=== PATIENT | female | born 1935 | race Caucasian/White ===

== ENCOUNTER → 2017-01-05 | Outpatient (CLI) | payer MEDICARE, BC ==
[~2017-01-05] MED LIST: 1-ME1LIQ PO; ALLO100T PO; AMLO10TA2 PO; ATOR40TA16 PO; AUGM500T7 PO; CALC0.25 PO; ENOX30P SQ; ENOX40P SQ; FURO1TAB62 PO; FURO20TA PO; LACT PO; LEVO50TA4 PO; LIPI10TA PO; METO25 PO; METO25TA6 PO; MISC-163; PARO25CR PO; PAXI25TA5 PO; PERC5TAB12 PO; PERI8.6T PO; VITA20002 PO; WALKER ROLLING; XARE10TA PO; ZOFR8TAB PO
[2017-01-05 15:00] LABS: APTT (PATIENT) 25.9 SEC (24.3-30.1); INTERNATIONAL NORMALIZED RATIO 0.9 RATIO
[2017-01-05 15:40] LABS: AUTOMATED NEUTROPHIL # 7.7 TH/MM3 (1.8-7.7); BASOPHIL # 0.1 TH/MM3 (0-0.2); BASOPHIL % 1.1 % (0.0-2.0); EOSINOPHIL # 0.4 TH/MM3 (0-0.4); EOSINOPHIL % 3.3 % (0.0-4.0); HEMATOCRIT 40.7 % (35.0-46.0); HEMO FLAGS DIFF FINAL; LYMPH % 18.2 % (9.0-44.0); LYMPHOCYTE # 2.1 TH/MM3 (1.0-4.8); MEAN CELL VOLUME 98.2 FL (80.0-100.0); MEAN CORPUSCULAR HEMOGLOBIN 31.3 PG (27.0-34.0); MEAN CORPUSCULAR HGB CONC 31.9 % (32.0-36.0); MONO % 11.4 % (0.0-8.0); PLATELET COUNT 280 TH/MM3 (150-450); RED BLOOD COUNT 4.15 MIL/MM3 (4.00-5.30); RED CELL DISTRIBUTION WIDTH 15.3 % (11.6-17.2); WHITE BLOOD COUNT 11.7 TH/MM3 (4.0-11.0)
== END ==
LOC: PLAB 13:58
PROVIDERS: ATTEND Orthopaedic Surgery
DX: S72.002D Fracture of unspecified part of neck of left femur, subsequent encounter for closed fracture with routine healing (principal)
CPT/HCPCS: 36415; 85025; 85610; 85730

== ENCOUNTER 2017-01-12 09:44 | Day surgery (SDC) | payer MEDICARE, BC ==
[~2017-01-12] VITALS: Ht 170.2 cm; Wt 77.3 kg
[~2017-01-12 09:44] MED LIST changes: -AMLO10TA2 PO; -ATOR40TA16 PO; -ENOX40P SQ; -FURO1TAB62 PO; -METO25TA6 PO; -PAXI25TA5 PO; -XARE10TA PO; -ZOFR8TAB PO
[2017-01-12] MEDS ORDERED: SODIUM CHLORIDE 0.9% 1000 ML IV SCH (10:00)
[2017-01-12] MEDS ORDERED: METO25TA6 PO (10:02)
[2017-01-12] MEDS ORDERED: FURO1TAB62 PO (10:03)
[2017-01-12] MEDS ORDERED: LEVO50TA4 PO (10:04)
[2017-01-12] MEDS ORDERED: PAXI25TA5 PO (10:06)
[2017-01-12] MEDS ORDERED: AMLO10TA2 PO (10:07)
[2017-01-12] MEDS ORDERED: ATOR40TA16 PO (10:07)
[2017-01-12] MEDS ORDERED: ALLO100T PO (10:08)
[2017-01-12 10:09] VITALS: BP 131/47; PULSE 51; RESP 18; TEMP 97.6; O2SAT 93
[2017-01-12] MEDS ORDERED: CALC0.25 PO (10:24)
[2017-01-12] MEDS ORDERED: LIDOCAINE 1%/EPINEPHrine 1:100,000 SOLN 20 ML VIAL ONE (13:23)
[2017-01-12] MEDS ORDERED: MIDAZOLAM HCL 5 MG/5 ML VIAL ONE (13:47)
[2017-01-12] MEDS ORDERED: fentaNYL CITRATE 250 MCG/5 ML AMP ONE (13:48)
[2017-01-12 14:40] VITALS: BP 131/52; PULSE 55; RESP 18; TEMP 97.7; O2SAT 96
[2017-01-12 14:55] VITALS: BP 115/37; PULSE 55; RESP 18; O2SAT 96
[2017-01-12 15:24] VITALS: BP 144/60; PULSE 54; RESP 18; O2SAT 93
--- NOTE | 2017-01-12 15:33 | RADRPT ---
EXAM DATE/TIME: 01/12/2017 13:59 [facility] COMPARISON: No previous studies available for comparison. INDICATIONS : Fluid collection left hip SEDATION TIME: 30 minutes MEDICATION(S): 1.) 2 mg midazolam (Versed) IV 2.) 100 mcg fentanyl (Sublimaze) IV DEVICE(S): 1.) 16 gauge Marquez blunt needle FLUID: Total volume of 120 cc of red fluid was removed. Fluid was discarded. MEDICAL HISTORY : Hypertension. Renal cell carcinoma. SURGICAL HISTORY : Lt nephrectomy, colon resection, lt hip repair ENCOUNTER: Initial ACUITY: 1 day PAIN SCORE: 0/10 LOCATION: Left hip PROCEDURE: 1.) Conscious sedation with continuous EKG and oximetry monitoring. 2.) EKG and oximetry remained stable throughout the procedure. PROCEDURE : CT guided aspiration of the left hip. The risks, benefits and alternatives to the procedure were explained and verbal and written consent w as obtained. Using automated exposure control and adjustment of the mA and/or kV according to patien t size, radiation dose was kept as low as reasonably achievable to obtain optimal diagnostic quality images. The site was prepped in sterile fashion. Full sterile technique was used, including cap, ma sk, sterile gloves and gown and a large sterile sheet. Hand hygiene and 2% chlorhexidine and/or beta dine/alcohol prep was utilized per protocol for cutaneous antisepsis. The skin and subcutaneous tiss ues were infiltrated with local anesthetic solution. 120 cc of bloody joint type fluid was removed CONCLUSION: Uncomplicated left hip aspiration as above. Fred Arguelles MD on January 12, 2017 at 15:30 Board Certified Radiologist. This report was verified electronically.
[2017-01-12 15:55] VITALS: BP 124/47; PULSE 55; RESP 18; O2SAT 97
== END 2017-01-12 15:40 | disposition home or self-care (01) ==
LOC: HRAD 09:44 → HRIP 09:48 → HRAD 15:40
PROVIDERS: ATTEND Orthopaedic Surgery
DX: S72.002D Fracture of unspecified part of neck of left femur, subsequent encounter for closed fracture with routine healing (principal); I10 Essential (primary) hypertension; Z85.528 Personal history of other malignant neoplasm of kidney
CPT/HCPCS: 20610; 77012; 99151; 99152; J2250; J3010; J7030; 99153

== ENCOUNTER 2017-01-15 12:02 | Inpatient (IN) | payer MEDICARE, BC ==
[~2017-01-15] VITALS: Ht 170.2 cm; Wt 62.3 kg
[~2017-01-15 12:02] MED LIST changes: -1-ME1LIQ PO; +AMLO10TA2 PO; +ATOR40TA16 PO; -AUGM500T7 PO; -ENOX30P SQ; +FURO1TAB62 PO; -FURO20TA PO; -LACT PO; -LIPI10TA PO; -METO25 PO; +METO25TA6 PO; -PARO25CR PO; +PAXI25TA5 PO; -PERC5TAB12 PO; -PERI8.6T PO; -VITA20002 PO
[2017-01-15] MEDS ORDERED: GENTAMICIN SULFATE 80 MG/2 ML VIAL ONE ×2 (13:18)
[2017-01-15] MEDS ORDERED: ceFAZolin 2 GM PREMIX 50 ML IV SCH (14:15)
[2017-01-15] MEDS ORDERED: INSULIN HUMAN REGULAR 1,000 UNITS/10 ML VIAL SQ PRN (14:15)
[2017-01-15] MEDS ORDERED: VANCOMYCIN 1000 MG/NS 250 ML (for <70 kg) IV SCH ×2 (14:15)
[2017-01-15] MEDS ORDERED: CHLORHEXIDINE GLUCONATE 2 % 1 PACK (2 CLOTHS) TOPICAL PRN (14:15)
[2017-01-15] MEDS ORDERED: LACTATED RINGER'S 1000 ML IV PRN (14:15)
[2017-01-15] MEDS ORDERED: METOPROLOL TARTRATE 25 MG TAB PO PRN (14:15)
[2017-01-15] MEDS ORDERED: SODIUM CHLORID 0.9% 500 ML IV PRN (14:15)
[2017-01-15] MEDS ORDERED: POVIDONE IODINE 5% (ANTISEPSIS KIT) 4 APPLICATIONS EACH NARE PRN (14:15)
[2017-01-15] MEDS: SODIUM CHLOR 0.45% 1000 ML INJ 1,000 ML IV SCH (14:30)
--- NOTE | 2017-01-15 14:41 | RADRPT ---
EXAM DATE/TIME: 01/15/2017 14:02 [facility] COMPARISON: CHEST SINGLE AP, July 30, 2016, 16:38. INDICATIONS : Evaluate for pneumonia, pneumothorax, or communicable disease. Pre op for hip surgery. MEDICAL HISTORY : None. SURGICAL HISTORY : None. ENCOUNTER: Initial ACUITY: 1 day PAIN SCORE: 0/10 LOCATION: Bilateral chest FINDINGS: The cardiac silhouette is enlarged in transverse diameter. There is prominence of the aortic knob is with calcification characteristic of atherosclerotic vascular disease. The lungs are free of acute pa renchymal opacity. No effusions are identified. CONCLUSION: 1. Cardiomegaly. No acute pulmonary disease. Fred Arguelles MD on January 15, 2017 at 14:39 Board Certified Radiologist. This report was verified electronically.
[2017-01-15 14:45] VITALS: BP 146/58; PULSE 56; RESP 18; TEMP 98; O2SAT 95
[2017-01-15] MEDS ORDERED: PROMETHAZINE HCL 25 MG SUPP RECTAL PRN (14:45)
[2017-01-15] MEDS ORDERED: Post-op Orders (for Pharmacy) MISC XX ONE (14:45)
[2017-01-15] MEDS ORDERED: oxyCODONE/ACETAMINOPHEN 5 MG/325 MG TAB PO PRN (14:45)
[2017-01-15] MEDS ORDERED: MORPHINE SULFATE 8 MG/ML INJ IV PUSH PRN (14:45)
[2017-01-15] MEDS ORDERED: SODIUM CHLORIDE 0.9% FLUSH 10 ML FLUSH IV FLUSH PRN (14:45)
[2017-01-15] MEDS ORDERED: PROMETHAZINE HCL 25 MG TAB PO PRN (14:45)
[2017-01-15] MEDS ORDERED: ZOFR8TAB PO (14:50)
[2017-01-15 14:53] LABS: AUTOMATED NEUTROPHIL # 7.9 TH/MM3 (1.8-7.7); BASOPHIL # 0.1 TH/MM3 (0-0.2); BASOPHIL % 0.8 % (0.0-2.0); EOSINOPHIL # 0.4 TH/MM3 (0-0.4); EOSINOPHIL % 3.4 % (0.0-4.0); HEMATOCRIT 41.9 % (35.0-46.0); HEMO FLAGS DIFF FINAL; LYMPH % 20.4 % (9.0-44.0); LYMPHOCYTE # 2.5 TH/MM3 (1.0-4.8); MEAN CELL VOLUME 96.8 FL (80.0-100.0); MEAN CORPUSCULAR HEMOGLOBIN 32.2 PG (27.0-34.0); MEAN CORPUSCULAR HGB CONC 33.3 % (32.0-36.0); MONO % 12.2 % (0.0-8.0); NEUT % 63.2 % (16.0-70.0); PLATELET COUNT 275 TH/MM3 (150-450); RED BLOOD COUNT 4.33 MIL/MM3 (4.00-5.30); RED CELL DISTRIBUTION WIDTH 15.3 % (11.6-17.2); WHITE BLOOD COUNT 12.5 TH/MM3 (4.0-11.0)
--- NOTE | 2017-01-15 15:12 | HHI.FF ---
Face to Face Verification Diagnosis: (1) Subcapital fracture of neck of left femur Physical Therapy Gait training Hip: Posterior hip precautions, Abduction pillow while in bed, Progress to weight bearing Canvas Knee Splint: At all times Right LE Weight Bearing: WB as tolerated Right LE Range of Motion: No ROM Left LE Weight Bearing: WB as tolerated Left LE Range of Motion: No ROM Nursing RN: 3 days/week x 2 weeks Nursing: Dressing changes, Other Dressing Changes: Coverderm/Primapore I have seen patient Tuyet Wells on 01/15/17. My clinical findings support the need for the requested home health care services because: Ltd mobility - disease progression I certify that my clinical findings support that this patient is homebound because: Post-op weakness Vicente Sellers Jr., MD Jan 15, 2017 15:12
[2017-01-15 15:15] LABS: INTERNATIONAL NORMALIZED RATIO 0.9 RATIO; PROTHROMBIN TIME - PATIENT 10.4 SEC (9.8-11.6)
[2017-01-15] MEDS: KETOROLAC TROMETHAMINE 30 MG/ML (IVP) VIAL IVP SCH ×2 (16:00→22:00)
[2017-01-15] MEDS ORDERED: ENOXAPARIN SODIUM 30 MG/0.3 ML SYRINGE SQ SCH (18:00)
[2017-01-15 19:54] VITALS: BP 183/76; PULSE 56; RESP 17; TEMP 95.9; O2SAT 92
[2017-01-15] MEDS: VANCOMYCIN INJ 1,000 MG in SODIUM CHLOR 0.9% 250 ML INJ 250 ML IV SCH (20:00)
[2017-01-15] MEDS ORDERED: ZOLPIDEM TARTRATE 5 MG TAB PO PRN (21:00)
[2017-01-15] MEDS: SODIUM CHLORIDE 0.9% FLUSH 10 ML FLUSH IV FLUSH SCH (21:00)
[2017-01-15 23:30] VITALS: BP 150/65; PULSE 55; RESP 16; TEMP 97.3; O2SAT 93
[2017-01-16] MEDS: SODIUM CHLOR 0.45% 1000 ML INJ 1,000 ML IV SCH ×2 (03:50→09:51)
[2017-01-16 04:00] VITALS: BP 166/70; PULSE 57; RESP 20; TEMP 97.4; O2SAT 95
[2017-01-16] MEDS: KETOROLAC TROMETHAMINE 30 MG/ML (IVP) VIAL IVP SCH ×4 (04:00→20:49)
[2017-01-16] MEDS: LEVOTHYROXINE SODIUM 50 MCG TAB PO SCH (05:21)
[2017-01-16] MEDS ORDERED: fentaNYL CITRATE 250 MCG/5 ML AMP ONE ×2 (07:11)
[2017-01-16] MEDS: VANCOMYCIN INJ 1,000 MG in SODIUM CHLOR 0.9% 250 ML INJ 250 ML IV SCH ×2 (08:00→20:45)
[2017-01-16 08:04] LABS: BICARBONATE 25.6 MEQ/L (21.0-32.0); POTASSIUM 3.5 MEQ/L (3.5-5.1)
[2017-01-16] MEDS: PARoxetine 25 MG CONTROLLED RELEASE TAB PO SCH (09:00)
[2017-01-16] MEDS: METOPROLOL SUCCINATE 25 MG EXTENDED RELEASE TAB PO SCH (09:00)
[2017-01-16] MEDS: CALCITRIOL 0.25 MCG CAP PO SCH (09:00)
[2017-01-16] MEDS: FUROSEMIDE 20 MG TAB PO SCH (09:00)
[2017-01-16] MEDS: ALLOPURINOL 100 MG TAB PO SCH (09:00)
[2017-01-16] MEDS ORDERED: hydrALAZINE HCL 20 MG/ML VIAL ONE (09:48)
[2017-01-16] MEDS ORDERED: hydrALAZINE HCL 20 MG/ML VIAL IV PRN (10:00)
[2017-01-16] MEDS: SODIUM CHLORIDE 0.9% FLUSH 10 ML FLUSH IV FLUSH SCH ×2 (10:00→20:44)
--- NOTE | 2017-01-16 10:01 | RADRPT ---
EXAM DATE/TIME: 01/16/2017 09:14 [facility] COMPARISON: CHEST SINGLE AP, January 15, 2017, 14:02. INDICATIONS : Post central line placement MEDICAL HISTORY : None. SURGICAL HISTORY : Left hip ENCOUNTER: Subsequent ACUITY: 1 day PAIN SCORE: Non-responsive. LOCATION: Bilateral chest FINDINGS: The cardiac silhouette is enlarged in transverse diameter. There are findings of congestive heart perlita lure with interstitial and alveolar opacity bilaterally. This is new when compared with the prior exa m. A right sided internal jugular vein catheter is in place without pneumothorax with its tip in the superior vena cava. CONCLUSION: 1. Cardiomegaly and findings of congestive heart failure. This is new when compared with the prior ex am. 2. Uncomplicated line placement. No evidence of pneumothorax. Fred Arguelles MD on January 16, 2017 at 9:59 Board Certified Radiologist. This report was verified electronically.
--- NOTE | 2017-01-16 10:02 | RADRPT ---
EXAM DATE/TIME: 01/16/2017 09:20 [facility] COMPARISON: HIP LEFT (AP&LAT 2/3VWS) W AP PELVIS, July 30, 2016, 15:38. INDICATIONS : Post left hip surgery MEDICAL HISTORY : None. SURGICAL HISTORY : Hip surgery ENCOUNTER: Subsequent ACUITY: 1 day PAIN SCORE: Non-responsive. LOCATION: Left hip FINDINGS: The patient is status post a total hip arthroplasty with a bipolar prosthesis. Prosthesis is well-sea edilia. Alignment is anatomic. A fracture is not appreciated. CONCLUSION: Anatomic alignment. Stephen Kong MD FACR Board Certified Radiologist. This report was verified electronically.
[2017-01-16 10:30] VITALS: BP 142/50; PULSE 63; RESP 16; TEMP 96; O2SAT 93
--- NOTE | 2017-01-16 11:25 | PD.OP ---
cc: Vicente Sellers Jr., MD Operative Report Date of Surgery: Jan 16, 2017 Preoperative Diagnosis: LEFT hip avascular necrosis Postoperative Diagnosis: same Procedure: #1 -LEFT hip removal of hardware #2 -LEFT hip bipolar hemiarthroplasty Anesthesia: general Surgeon: Vicente Sellers First Line Production Supervisor(s): staff Resident Surgeon: none Operation and Findings: DRAIN: none DETAILS OF PROCEDURE This patient was brought into the operating room and placed on the OR table. The patient was given anesthesia. The patient received IV antibiotics. The patient was then placed in lateral decubitus position. The LEFT hip and leg were prepped with alcohol, followed by Hibiclens and draped in a usual sterile fashion. Clean air was used for this procedure. Time out procedure was performed. The procedure began with a 5 inch incision over the posterolateral hip. The subcutaneous tissue was dissected with the Bovie. the 3 lag screws were located proximately and removed. The iliotibial band were split in line with fibers. The Charnley retractor was placed. The piriformis and external rotators were released from the femur and tagged with a #1 Vicryl suture. The capsule is now incised and tagged with #1 Vicryl. The femoral neck fracture was now visualized. A corkscrew was now used to remove the femoral head. The femoral head was sized and measured. Soft tissue was now protected. The hip skid was placed underneath the femoral neck. An oscillating saw was used to make a femoral neck cut. At this point attention was turned to preparation of the proximal femur. A box osteotome was used to remove the lateral cortex of the femoral neck. The T- handle reamer was used to open the femoral canal. Next, the canal was broached. A lateralizing reamer was used to help lateralize the prosthesis. At this point a trial head and neck were placed. The hip was reduced. The patient was found to have excellent stability with good range of motion. Trial components were removed. Soft tissue and bone were thoroughly irrigated. A Corail stem was now opened. The stem was now impacted into the proximal femur. Care was taken to keep appropriate anteversion. The head and neck were now impacted onto the stem. The hip was again reduced. The hip was found to have good range of motion and good stability. Leg lengths were clinically equal. The wound was thoroughly irrigated. The capsule, piriformis and iliotibial band were closed with #1 Vicryl. Subcutaneous tissue was closed with 3-0 Vicryl. The skin was closed with lidia. A sterile dressing was applied with Primapore. The patient was placed into a knee immobilizer. The patient was awakened and transferred to the recovery room in stable condition. Needle and sponge counts were correct. IMPLANTS USED Applied StemCell[employer] Corail size 14 stem with size 48 +5mm bipolar head and standard neck. POSTP-OP PLAN OF ACTIVITY Antibiotics: Ancef, vancomycin Antiocoagulation: Lovenox Weight bearing status: WBAT. posterior hip precautions. knee immobilizer on at all times except when walking. Abduction pillow in bed. Dressing: Change daily, by RN starting postop day 2. Dispo: expected discharge 2-3 days. likely inpatient rehabilitation. F2F and pain rx in chart Vicente Sellers Jr., MD Jan 16, 2017 11:25
[2017-01-16 12:00] VITALS: BP 116/44; PULSE 65; RESP 16; TEMP 97; O2SAT 94
--- NOTE | 2017-01-16 13:06 | PD.CONS ---
HPI Service [facility] Hospitalists Consult Requested By Dr. Sellers Reason for Consult Medical management Primary Care Physician Suzi Lee MD Diagnoses: History of Present Illness 81-year-old female with past medical history of depression, gout, HTN, HLD, hypothyroidism, RCC and avascular necrosis of the left hip who had left hip removal of hardware and bipolar hemiarthroplasty with Dr. Sellers. Hospitalists were consulted for medical management. The patient's reports earlier this week she had been having loose stools. She has not had a bowel movement overnight or since she has been here. She thinks that her blood pressure was a little bit lower than normal. She reports her left hip pain is minimal. She denies any chest pain, shortness breath, nausea, vomiting, fever, chills. Review of Systems Except as stated in HPI: all other systems reviewed are Neg Past Family Social History Allergies: Coded Allergies: No Known Allergies (Unverified , 01/15/17) Past Medical History Depression GERD Hypertension Hyperlipidemia Hypothyroidism Renal cell carcinoma status post resection Past Surgical History Bilateral knee replacement Left nephrectomy Left hip ORIF with subsequent pin fixation Right colectomy Hernia repair Reported Medications Zofran (Ondansetron HCl) 8 Mg Tab 8 Mg PO TID Calcitriol 0.25 Mcg Cap 0.25 Mcg PO DAILY Allopurinol 100 Mg Tab 100 Mg PO DAILY Amlodipine (Amlodipine Besylate) 10 Mg Tab 10 Mg PO DAILY Atorvastatin (Atorvastatin Calcium) 40 Mg Tab 40 Mg PO HS Paxil CR (Paroxetine HCl) 25 Mg Tab 25 Mg PO DAILY Levothyroxine (Levothyroxine Sodium) 50 Mcg Tab 50 Mcg PO DAILY Lasix (Furosemide) 20 Mg Tab 20 Mg PO DAILY Metoprolol Succinate ER 24 HR (Metoprolol Succinate) 25 Mg Tab 25 Mg PO DAILY Active Ordered Medications Current Medications Medications (Trade) Dose Ordered Sig/Bertha Route Start Time Stop Time Status Last Admin (10/20 NS 1000 ml Inj) 1,000 ml @ 75 mls/hr [id number] IV 01/15/17 14:30 01/16/17 09:51 (NS Flush) 2 ml UNSCH PRN IV FLUSH 01/15/17 14:45 (NS Flush) 2 ml BID IV FLUSH 01/15/17 21:00 01/16/17 10:00 (Lovenox Inj) 30 mg Q12H SQ 01/15/17 18:00 (Morphine Inj) 5 mg Q3H PRN IV PUSH 01/15/17 14:45 (Percocet 5-325 Mg) 1 tab Q4H PRN PO 01/15/17 14:45 (Percocet 5-325 Mg) 2 tab Q4H PRN PO 01/15/17 14:45 (Toradol Inj) 15 mg Q6H IVP 01/15/17 16:00 01/17/17 10:01 01/16/17 09:51 (Phenergan) 25 mg Q4H PRN PO 01/15/17 14:45 (Phenergan Supp) 25 mg Q4H PRN RECTAL 01/15/17 14:45 (Colace) 100 mg BID PO 01/16/17 21:00 (Ambien) 5 mg HS PRN PO 01/15/17 21:00 (Zyloprim) 100 mg DAILY PO 01/16/17 09:00 (Norvasc) 10 mg DAILY PO 01/16/17 09:00 (Lipitor) 40 mg HS PO 01/16/17 21:00 (Rocaltrol) 0.25 mcg DAILY PO 01/16/17 09:00 (Lasix) 20 mg DAILY PO 01/16/17 09:00 (Synthroid) 50 mcg DAILY@07 PO 01/16/17 07:00 01/16/17 05:21 (Toprol Xl) 25 mg DAILY PO 01/16/17 09:00 (Paxil Cr) 25 mg DAILY PO 01/16/17 09:00 (Apresoline Inj) 5 mg Q10M PRN IV 01/16/17 10:00 01/16/17 09:49 Family History Both parents in their 90s and were healthy. Family history reviewed and no family history pertinent current chief complaint. Social History Denies any alcohol, tobacco, or illegal drug use Physical Exam Vital Signs Vital Signs Date Time Temp Pulse Resp B/P Pulse Ox O2 Delivery O2 Flow Rate FiO2 01/16/17 10:30 96.0 63 16 142/50 93 01/16/17 10:00 97.7 75 13 128/45 96 Nasal Cannula 2 01/16/17 09:50 70 12 138/54 96 Nasal Cannula 3 01/16/17 09:45 88 16 178/78 94 Nasal Cannula 3 01/16/17 09:30 88 16 173/70 94 Nasal Cannula 3 01/16/17 09:15 99 13 164/77 94 Nasal Cannula 3 01/16/17 09:00 73 15 194/87 94 Nasal Cannula 3 01/16/17 08:55 97.8 64 15 175/69 98 Simple Mask 6 01/16/17 04:00 97.4 57 20 166/70 95 01/15/17 23:30 97.3 55 16 150/65 93 01/15/17 19:54 95.9 56 17 183/76 92 01/15/17 19:15 Room Air 01/15/17 14:45 98.0 56 18 146/58 95 Physical Exam GENERAL: Well-developed well-nourished. In no acute distress. SKIN: Warm and dry. No lesions noted. HEENT: Normocephalic. Pupils equal and round. Mucous membranes pink and moist. CARDIOVASCULAR: Regular rate and rhythm. No murmur appreciated. RESPIRATORY: No accessory muscle use. Clear to auscultation. Breath sounds equal bilaterally. GASTROINTESTINAL: Abdomen soft, non-tender, nondistended. Bowel sounds x4. Nephrectomy scar on LUQ with reducible nontender ventral hernia. MUSCULOSKELETAL: Left hip with surgical dressing, CDI. Left knee in immobilizer. No clubbing or cyanosis. No edema. NEUROLOGICAL: Awake and alert. No focal neurological deficits. Moves upper and lower extremities spontaneously. Normal speech. PSYCHIATRIC: Appropriate mood and affect; insight and judgment normal. Laboratory Laboratory Tests Test 01/15/17 01/15/17 01/16/17 14:20 14:22 07:00 Crossmatch Leukocyte-Reduced Red Blood Cells Blood Bank Comment White Blood Count 12.5 Red Blood Count 4.33 Hemoglobin 14.0 Hematocrit 41.9 Mean Corpuscular Volume 96.8 Mean Corpuscular Hemoglobin 32.2 Mean Corpuscular Hemoglobin 33.3 Concent Red Cell Distribution Width 15.3 Platelet Count 275 Mean Platelet Volume 8.2 Neutrophils (%) (Auto) 63.2 Lymphocytes (%) (Auto) 20.4 Monocytes (%) (Auto) 12.2 Eosinophils (%) (Auto) 3.4 Basophils (%) (Auto) 0.8 Neutrophils # (Auto) 7.9 Lymphocytes # (Auto) 2.5 Monocytes # (Auto) 1.5 Eosinophils # (Auto) 0.4 Basophils # (Auto) 0.1 CBC Comment DIFF FINAL Differential Comment Prothrombin Time 10.4 Prothromb Time International 0.9 Ratio Blood Type A POSITIVE Antibody Screen NEGATIVE Sodium Level 143 Potassium Level 3.5 Chloride Level 107 Carbon Dioxide Level 25.6 Anion Gap 10 Blood Urea Nitrogen 23 Creatinine 1.54 Estimat Glomerular Filtration 32 Rate Random Glucose 108 Calcium Level 9.4 Date/Time Procedure Status Source Growth 01/16/17 07:18 Gram Stain - Final Resulted Tissue Hip 01/16/17 07:18 Wound Culture Resulted Tissue Hip Pending 01/16/17 07:18 Fungal Smear - Final Resulted Fluid Other NO FUNGAL ELEMENTS SEEN. 01/16/17 07:18 Fungal Culture Resulted Fluid Other Pending 01/16/17 07:18 Acid Fast Stain Received Fluid Other Pending 01/16/17 07:18 Mycobacterial Culture Received Fluid Other Pending 01/16/17 07:18 Cancelled Fluid Other Result Diagram: 01/15/17 1422 01/16/17 0700 Imaging Last Impressions Chest X-Ray 01/16/17 0906 Signed Impressions: Service Date/Time: Monday, January 16, 2017 09:14 - CONCLUSION: 1. Cardiomegaly and findings of congestive heart failure. This is new when compared with the prior exam. 2. Uncomplicated line placement. No evidence of pneumothorax. Fred Arguelles MD Hip and Pelvis X-Ray 01/16/17 0000 Signed Impressions: Service Date/Time: Monday, January 16, 2017 09:20 - CONCLUSION: Anatomic alignment. Stephen Kong MD Assessment and Plan Assessment and Plan 81-year-old female with past medical history of depression, gout, HTN, HLD, hypothyroidism, RCC and avascular necrosis of the left hip who had left hip removal of hardware and bipolar hemiarthroplasty with Dr. Sellers. Hospitalists were consulted for medical management. S/P left hip removal of hardware and bipolar hemiarthroplasty: Perioperative care including diet, activity, pain control, rehabilitation recommendations for DVT prophylaxis per primary orthopedic team. Oxycodone as needed with Colace for bowel regimen. Toradol scheduled. Fluid studies taken intraoperatively, results pending. Afebrile. Follow-up labs in the a.m. 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 Renal function currently below baseline. Chronic, stable. Pulmonary edema?: The patient had chest x-ray done which showed new findings of possible pulmonary edema. She denies any respiratory complaints. Possibly from fluid administration. Incentive spirometry. O2 as needed. Check BNP. Stop IVF. Monitor. Other chronic medical conditions include depression, gout, hypertension, hyperlipidemia, hypothyroidism: Stable at this time and will continue home medications as indicated. Vasotec as needed for hypertension. DVT prophylaxis: Lovenox Written by Channing Hopson, acting as scribe for Dr. Mcqueen on 01/16/17 at 13:05. All or portions of this note were transcribed by porfirio BROOKE. I, Dr. Tori Mcqueen personally performed the history, physical exam, and medical decision making; and confirmed the accuracy of the information in the transcribed note. Authenticated by Dr. Tori Mcqueen on 01/16/17 at 13:05. Discussed Condition With Patient with daughter at bedside Channing Hopson Jan 16, 2017 13:05 Tori Mcqueen MD Jan 16, 2017 14:02
[2017-01-16] MEDS ORDERED: ENALAPRILAT 1.25 MG/ML VIAL IV PUSH PRN (13:30)
[2017-01-16] MEDS ORDERED: NEOSTIGMINE 3 MG/3 ML SYR IV ONE (15:31)
[2017-01-16] MEDS ORDERED: PROPOFOL 200 MG/20 ML AMP IV ONE (15:31)
[2017-01-16] MEDS ORDERED: ePHEDrine/NS 50 MG/5 ML SYR IV ONE (15:31)
[2017-01-16] MEDS ORDERED: ONDANSETRON HCL 4 MG/2 ML VIAL IV PUSH ONE (15:32)
[2017-01-16 16:00] VITALS: BP 134/52; PULSE 67; RESP 16; TEMP 97.2; O2SAT 92
[2017-01-16 16:12] VITALS: O2SAT 95
[2017-01-16 20:10] VITALS: BP 91/43; PULSE 60; RESP 17; TEMP 98.4; O2SAT 95
[2017-01-16] MEDS: ATORVASTATIN 40 MG TAB PO SCH (20:44)
[2017-01-16] MEDS: ENOXAPARIN SODIUM 30 MG/0.3 ML SYRINGE SQ SCH (20:44)
[2017-01-16] MEDS: DOCUSATE SODIUM 100 MG CAP PO SCH (20:44)
[2017-01-16] MEDS: oxyCODONE/ACETAMINOPHEN 5 MG/325 MG TAB PO PRN (20:49)
[2017-01-17] VITALS (8 sets, daily range): BP systolic 94–125; BP diastolic 41–57; PULSE 62–70; RESP 16–17; TEMP 96.9–98.9; O2SAT 92–96
[2017-01-17] MEDS: LEVOTHYROXINE SODIUM 50 MCG TAB PO SCH (05:50)
[2017-01-17] MEDS: KETOROLAC TROMETHAMINE 30 MG/ML (IVP) VIAL IVP SCH ×2 (05:50→09:14)
[2017-01-17 06:30] LABS: BICARBONATE 26.1 MEQ/L (21.0-32.0); POTASSIUM 3.7 MEQ/L (3.5-5.1)
[2017-01-17 07:03] LABS: AUTOMATED NEUTROPHIL # 8.4 TH/MM3 (1.8-7.7); BASOPHIL # 0.1 TH/MM3 (0-0.2); BASOPHIL % 0.7 % (0.0-2.0); EOSINOPHIL # 0.1 TH/MM3 (0-0.4); EOSINOPHIL % 1.2 % (0.0-4.0); HEMATOCRIT 33.1 % (35.0-46.0); HEMO FLAGS DIFF FINAL; LYMPH % 11.2 % (9.0-44.0); LYMPHOCYTE # 1.3 TH/MM3 (1.0-4.8); MEAN CELL VOLUME 97.5 FL (80.0-100.0); MEAN CORPUSCULAR HEMOGLOBIN 32.2 PG (27.0-34.0); MONO % 16.1 % (0.0-8.0); NEUT % 70.8 % (16.0-70.0); PLATELET COUNT 229 TH/MM3 (150-450); RED CELL DISTRIBUTION WIDTH 15.3 % (11.6-17.2); WHITE BLOOD COUNT 11.9 TH/MM3 (4.0-11.0)
--- NOTE | 2017-01-17 07:50 | HHI.PR ---
Subjective Remarks VSS. No fevers or chills./ No n/v/d/c. Pain is controlled by meds. Objective Vitals Vital Signs Date Time Temp Pulse Resp B/P Pulse Ox O2 Delivery O2 Flow Rate FiO2 01/17/17 04:15 97.7 68 17 125/57 94 01/17/17 00:15 98.3 68 16 94/41 94 01/16/17 20:10 98.4 60 17 91/43 95 01/16/17 19:18 Nasal Cannula 2.00 01/16/17 16:12 95 Nasal Cannula 3.00 01/16/17 16:00 97.2 67 16 134/52 92 01/16/17 12:00 97.0 65 16 116/44 94 01/16/17 10:30 96.0 63 16 142/50 93 01/16/17 10:00 97.7 75 13 128/45 96 Nasal Cannula 2 01/16/17 09:50 70 12 138/54 96 Nasal Cannula 3 01/16/17 09:45 88 16 178/78 94 Nasal Cannula 3 01/16/17 09:30 88 16 173/70 94 Nasal Cannula 3 01/16/17 09:15 99 13 164/77 94 Nasal Cannula 3 01/16/17 09:00 73 15 194/87 94 Nasal Cannula 3 01/16/17 08:55 97.8 64 15 175/69 98 Simple Mask 6 I/O 01/16/17 01/16/17 01/16/17 01/17/17 01/17/17 01/17/17 07:00 15:00 23:00 07:00 15:00 23:00 Intake Total 0 ml 1200 ml 1399 ml 726 ml Output Total 250 ml 350 ml Balance 0 ml 950 ml 1399 ml 376 ml Intake Oral 0 ml 120 ml 120 ml IV Total 1279 ml 606 ml Other 1200 ml Output Urine Total 350 ml Estimated Blood Loss 150 ml Other 100 ml # Voids 1 0 # Bowel Movements 0 0 Result Diagram: 01/17/1730 01/17/17529 Imaging Last Impressions Chest X-Ray 01/16/1706 Signed Impressions: Service Date/Time: Monday, January 16, 2017 09:14 - CONCLUSION: 1. Cardiomegaly and findings of congestive heart failure. This is new when compared with the prior exam. 2. Uncomplicated line placement. No evidence of pneumothorax. Fred Arguelles MD Hip and Pelvis X-Ray 01/16/17 0000 Signed Impressions: Service Date/Time: Monday, January 16, 2017 09:20 - CONCLUSION: Anatomic alignment. Stephen Knog MD Objective Remarks GENERAL: Well-developed well-nourished. In no acute distress. SKIN: Warm and dry. No lesions noted. HEENT: Normocephalic. Pupils equal and round. Mucous membranes pink and moist. CARDIOVASCULAR: Regular rate and rhythm. No murmur appreciated. RESPIRATORY: No accessory muscle use. Clear to auscultation. Breath sounds equal bilaterally. GASTROINTESTINAL: Abdomen soft, non-tender, nondistended. Bowel sounds x4. Nephrectomy scar on LUQ with reducible nontender ventral hernia. MUSCULOSKELETAL: Left hip with surgical dressing, CDI. Left knee in immobilizer. No clubbing or cyanosis. No edema. NEUROLOGICAL: Awake and alert. No focal neurological deficits. Moves upper and lower extremities spontaneously. Normal speech. PSYCHIATRIC: Appropriate mood and affect; insight and judgment normal. A/P Assessment and Plan 81-year-old female with past medical history of depression, gout, HTN, HLD, hypothyroidism, RCC and avascular necrosis of the left hip who had left hip removal of hardware and bipolar hemiarthroplasty with Dr. Sellers. Hospitalists were consulted for medical management. S/P left hip removal of hardware and bipolar hemiarthroplasty: Perioperative care including diet, activity, pain control, rehabilitation recommendations for DVT prophylaxis per primary orthopedic team. Oxycodone as needed with Colace for bowel regimen. Toradol scheduled. Fluid studies taken intraoperatively, results pending. Afebrile. Follow-up labs in the a.m. CKD stage III/IV: Creatinine 1.54, previously 1.91 on 08/13/16. Renal function currently below baseline. Chronic, stable. Pulmonary edema?: The patient had chest x-ray done which showed new findings of possible pulmonary edema. She denies any respiratory complaints. Possibly from fluid administration. Incentive spirometry. O2 as needed. Check BNP. Stop IVF. Monitor. Other chronic medical conditions include depression, gout, hypertension, hyperlipidemia, hypothyroidism: Stable at this time and will continue home medications as indicated. Vasotec as needed for hypertension. DVT prophylaxis: Lovenox Appears stable medically. Cleared by hospitalist for DC to followup as OP with her PCP and consultants. Tori Mcqueen MD Jan 17, 2017 07:50
[2017-01-17] MEDS: METOPROLOL SUCCINATE 25 MG EXTENDED RELEASE TAB PO SCH (09:00)
[2017-01-17] MEDS: ALLOPURINOL 100 MG TAB PO SCH (09:13)
[2017-01-17] MEDS: DOCUSATE SODIUM 100 MG CAP PO SCH ×2 (09:13→21:21)
[2017-01-17] MEDS: SODIUM CHLORIDE 0.9% FLUSH 10 ML FLUSH IV FLUSH SCH ×2 (09:13→21:21)
[2017-01-17] MEDS: CALCITRIOL 0.25 MCG CAP PO SCH (09:13)
[2017-01-17] MEDS: ENOXAPARIN SODIUM 30 MG/0.3 ML SYRINGE SQ SCH (09:14)
[2017-01-17] MEDS: FUROSEMIDE 20 MG TAB PO SCH (09:15)
[2017-01-17] MEDS: oxyCODONE/ACETAMINOPHEN 5 MG/325 MG TAB PO PRN ×3 (09:15→21:21)
[2017-01-17] MEDS: PARoxetine 25 MG CONTROLLED RELEASE TAB PO SCH (09:15)
[2017-01-17] MEDS: SODIUM CHLOR 0.45% 1000 ML INJ 1,000 ML IV SCH ×2 (09:19→23:07)
[2017-01-17] MEDS: VANCOMYCIN INJ 1,000 MG in SODIUM CHLOR 0.9% 250 ML INJ 250 ML IV SCH (09:20)
--- NOTE | 2017-01-17 12:21 | PD.ORT.PN ---
Subjective Post Op Day #: 1 Subjective Remarks Patient is resting in bed in no distress. Patient reports moderate soreness but denies pain. Objective Vitals Vital Signs Date Time Temp Pulse Resp B/P Pulse Ox O2 Delivery O2 Flow Rate FiO2 01/17/17 09:25 Nasal Cannula 1.00 01/17/17 08:33 95 Nasal Cannula 2.00 01/17/17 08:00 97.7 70 16 120/47 95 01/17/17 04:15 97.7 68 17 125/57 94 01/17/17 00:15 98.3 68 16 94/41 94 01/16/17 20:10 98.4 60 17 91/43 95 01/16/17 19:18 Nasal Cannula 2.00 01/16/17 16:12 95 Nasal Cannula 3.00 01/16/17 16:00 97.2 67 16 134/52 92 I/O 01/16/17 01/16/17 01/16/17 01/17/17 01/17/17 01/17/17 07:00 15:00 23:00 07:00 15:00 23:00 Intake Total 0 ml 1200 ml 1399 ml 726 ml 540 ml Output Total 250 ml 350 ml Balance 0 ml 950 ml 1399 ml 376 ml 540 ml Intake Oral 0 ml 120 ml 120 ml IV Total 1279 ml 606 ml 540 ml Other 1200 ml Output Urine Total 350 ml Estimated Blood Loss 150 ml Other 100 ml # Voids 1 0 # Bowel Movements 0 0 Result Diagram: 01/17/17 0530 01/17/17 0530 Procedures POD #1: Left hip Hemiarthroplasty Objective Remarks The patient's dressing is C/D/I. EHL/TA/G intact. 2+ pedal pulse. Calf is soft and nontender. + SILT. Minimal swelling. Assessment & Plan Ortho Post Op Day #: 1 Problem List: Assessment and Plan POD #1: Left hip Hemiarthroplasty Antiocoagulation: Lovenox Weight bearing status: WBAT. posterior hip precautions. knee immobilizer on at all times except when walking. Abduction pillow in bed. Dressing: Change daily, by RN starting postop day 2. Dispo: expected discharge 2-3 days. likely inpatient rehabilitation ([facility]). F2F and pain rx in chart Remove urinary cath now. Bernardino Mckenzie Jan 17, 2017 12:21
[2017-01-17] MEDS: ATORVASTATIN 40 MG TAB PO SCH (21:21)
[2017-01-18] VITALS (7 sets, daily range): BP systolic 124–157; BP diastolic 47–59; PULSE 60–74; RESP 16–18; TEMP 97.2–99.2; O2SAT 91–95
[2017-01-18] MEDS: LEVOTHYROXINE SODIUM 50 MCG TAB PO SCH (04:51)
[2017-01-18] MEDS: oxyCODONE/ACETAMINOPHEN 5 MG/325 MG TAB PO PRN ×3 (04:51→17:54)
[2017-01-18 05:34] LABS: AUTOMATED NEUTROPHIL # 11.3 TH/MM3 (1.8-7.7); BASOPHIL # 0.1 TH/MM3 (0-0.2); BASOPHIL % 0.6 % (0.0-2.0); EOSINOPHIL # 0.4 TH/MM3 (0-0.4); EOSINOPHIL % 2.6 % (0.0-4.0); HEMATOCRIT 32.1 % (35.0-46.0); HEMO FLAGS DIFF FINAL; LYMPH % 8.1 % (9.0-44.0); LYMPHOCYTE # 1.2 TH/MM3 (1.0-4.8); MEAN CELL VOLUME 98.1 FL (80.0-100.0); MEAN CORPUSCULAR HEMOGLOBIN 31.4 PG (27.0-34.0); MONO % 10.9 % (0.0-8.0); NEUT % 77.8 % (16.0-70.0); PLATELET COUNT 190 TH/MM3 (150-450); RED BLOOD COUNT 3.28 MIL/MM3 (4.00-5.30); RED CELL DISTRIBUTION WIDTH 15.1 % (11.6-17.2); WHITE BLOOD COUNT 14.5 TH/MM3 (4.0-11.0)
[2017-01-18 05:55] LABS: BICARBONATE 25.3 MEQ/L (21.0-32.0); POTASSIUM 3.6 MEQ/L (3.5-5.1)
[2017-01-18] MEDS: SODIUM CHLORIDE 0.9% FLUSH 10 ML FLUSH IV FLUSH SCH ×2 (09:00→20:12)
--- NOTE | 2017-01-18 09:22 | HHI.PR ---
Subjective Remarks No acute events overnight. Afebrile, vital signs stable. Patient with no complaints at this time. Objective Vitals Vital Signs Date Time Temp Pulse Resp B/P Pulse Ox O2 Delivery O2 Flow Rate FiO2 01/18/17 09:04 95 21 01/18/17 04:12 98.9 68 18 142/51 92 01/18/17 00:05 98.6 74 18 127/52 94 01/17/17 20:10 98.9 69 17 118/45 94 01/17/17 18:26 92 21 01/17/17 16:00 98.6 62 16 104/47 92 01/17/17 12:00 96.9 65 16 116/45 96 01/17/17 09:25 Nasal Cannula 1.00 I/O 01/17/17 01/17/17 01/17/17 01/18/17 01/18/17 01/18/17 07:00 15:00 23:00 07:00 15:00 23:00 Intake Total 726 ml 1020 ml 480 ml 240 ml Output Total 350 ml 350 ml Balance 376 ml 1020 ml 130 ml 240 ml Intake Oral 120 ml 480 ml 480 ml 240 ml IV Total 606 ml 540 ml Output Urine Total 350 ml 350 ml # Voids 100 1 # Bowel Movements 0 0 0 0 Result Diagram: 01/18/17 0500 01/18/17 0500 Objective Remarks Gen.: No acute distress Head: Normocephalic. Atraumatic. EENT: Pupils equal round and reactive to light. Nose without drainage. Airway intact. Throat without injection. Cardiovascular: Regular rate and rhythm. No murmurs, rubs or gallops. Respiratory: Lungs clear to auscultation bilaterally. No wheezes or rhonchi. Abdomen: Soft, nontender, nondistended. No peritoneal signs. Musculoskeletal: No gross deformities. No edema. Skin: No obvious rashes or erythema. Neuro: Sensory and motor grossly intact. Cranial nerves II through XII grossly intact. Psych: Appropriate mood and affect A/P Assessment and Plan 81-year-old female with past medical history of depression, gout, HTN, HLD, hypothyroidism, RCC and avascular necrosis of the left hip who had left hip removal of hardware and bipolar hemiarthroplasty with Dr. Sellers. Hospitalists were consulted for medical management. S/P left hip removal of hardware and bipolar hemiarthroplasty: Perioperative care including diet, activity, pain control, rehabilitation recommendations for DVT prophylaxis per primary orthopedic team. Oxycodone as needed with Colace for bowel regimen. Toradol scheduled. Fluid studies taken intraoperatively, Gram stain and fungal smear with no elements seen. Wound culture no growth 24 hours. Afebrile. Patient continues to have leukocytosis at 14.5 (up from 11.9 yesterday.) CKD stage III/IV: Creatinine 1.83, previously 1.91 on 08/13/16. Renal function currently at baseline. Chronic, stable. Pulmonary edema?: The patient had chest x-ray done which showed new findings of possible pulmonary edema. She denies any respiratory complaints. Possibly from fluid administration. Incentive spirometry. O2 as needed. BNP 228. Stop IVF. Monitor. Other chronic medical conditions include depression, gout, hypertension, hyperlipidemia, hypothyroidism: Stable at this time and will continue home medications as indicated. Vasotec as needed for hypertension. DVT prophylaxis: Lovenox Appears stable medically. Cleared by hospitalist for DC to followup as OP with her PCP and consultants. Rafaela Silva MD R3 Jan 18, 2017 09:22
[2017-01-18] MEDS: DOCUSATE SODIUM 100 MG CAP PO SCH ×2 (09:23→20:13)
[2017-01-18] MEDS: ALLOPURINOL 100 MG TAB PO SCH (09:23)
[2017-01-18] MEDS: METOPROLOL SUCCINATE 25 MG EXTENDED RELEASE TAB PO SCH (09:24)
[2017-01-18] MEDS: FUROSEMIDE 20 MG TAB PO SCH (09:24)
[2017-01-18] MEDS: PARoxetine 25 MG CONTROLLED RELEASE TAB PO SCH (09:25)
[2017-01-18] MEDS: ENOXAPARIN SODIUM 30 MG/0.3 ML SYRINGE SQ SCH (09:25)
[2017-01-18] MEDS: CALCITRIOL 0.25 MCG CAP PO SCH (09:25)
[2017-01-18] MEDS ORDERED: ENOX40P SQ (11:27)
[2017-01-18] MEDS ORDERED: PERC5TAB12 PO (11:27)
--- NOTE | 2017-01-18 11:37 | PD.ORT.PN ---
Subjective Post Op Day #: 2 Subjective Remarks Patient is OOB in chair with minimal pain. Patient ready to go to rehab. Spoke with patient about need for BM and to take meds offered by RN Objective Vitals Vital Signs Date Time Temp Pulse Resp B/P Pulse Ox O2 Delivery O2 Flow Rate FiO2 01/18/17 09:04 95 21 01/18/17 08:00 97.3 68 16 138/50 93 01/18/17 04:12 98.9 68 18 142/51 92 01/18/17 00:05 98.6 74 18 127/52 94 01/17/17 20:10 98.9 69 17 118/45 94 01/17/17 18:26 92 21 01/17/17 16:00 98.6 62 16 104/47 92 01/17/17 12:00 96.9 65 16 116/45 96 I/O 01/17/17 01/17/17 01/17/17 01/18/17 01/18/17 01/18/17 07:00 15:00 23:00 07:00 15:00 23:00 Intake Total 726 ml 1020 ml 480 ml 240 ml 1791 ml Output Total 350 ml 350 ml Balance 376 ml 1020 ml 130 ml 240 ml 1791 ml Intake Oral 120 ml 480 ml 480 ml 240 ml IV Total 606 ml 540 ml 1791 ml Output Urine Total 350 ml 350 ml # Voids 100 1 # Bowel Movements 0 0 0 0 Result Diagram: 01/18/17 0500 01/18/17 0500 Procedures POD #1: Left hip Hemiarthroplasty Objective Remarks The patient's dressing is C/D/I. EHL/TA/G intact. 2+ pedal pulse. Calf is soft and nontender. + SILT. Minimal swelling. Assessment & Plan Ortho Post Op Day #: 2 Problem List: Assessment and Plan POD #2: Left hip Hemiarthroplasty Antiocoagulation: Lovenox Weight bearing status: WBAT. posterior hip precautions. knee immobilizer on at all times except when walking. Abduction pillow in bed. Dressing: Change daily, by RN starting postop day 2. Dispo: [facility]. F/U with Dr. Sellers in 2 weeks. Bernardino Mckenzie Jan 18, 2017 11:36
[2017-01-18] MEDS ORDERED: BISACODYL 10 MG SUPP RECTAL PRN (13:00)
[2017-01-18] MEDS ORDERED: MAGNESIUM HYDROXIDE SUSP 30 ML CUP PO ONE (13:00)
[2017-01-18] MEDS: ATORVASTATIN 40 MG TAB PO SCH (20:13)
[2017-01-19 00:04] VITALS: BP 92/50; PULSE 63; RESP 16; TEMP 98.2; O2SAT 92
[2017-01-19] MEDS: LEVOTHYROXINE SODIUM 50 MCG TAB PO SCH (05:05)
[2017-01-19] MEDS: oxyCODONE/ACETAMINOPHEN 5 MG/325 MG TAB PO PRN (05:06)
[2017-01-19 08:00] VITALS: BP 122/45; PULSE 59; RESP 18; TEMP 98.1; O2SAT 96
[2017-01-19] MEDS: CALCITRIOL 0.25 MCG CAP PO SCH (08:18)
[2017-01-19] MEDS: ALLOPURINOL 100 MG TAB PO SCH (08:19)
[2017-01-19] MEDS: PARoxetine 25 MG CONTROLLED RELEASE TAB PO SCH (08:19)
[2017-01-19] MEDS: ENOXAPARIN SODIUM 30 MG/0.3 ML SYRINGE SQ SCH (08:19)
[2017-01-19] MEDS: DOCUSATE SODIUM 100 MG CAP PO SCH (08:20)
[2017-01-19] MEDS: FUROSEMIDE 20 MG TAB PO SCH (08:20)
[2017-01-19] MEDS: SODIUM CHLORIDE 0.9% FLUSH 10 ML FLUSH IV FLUSH SCH (08:20)
[2017-01-19] MEDS: METOPROLOL SUCCINATE 25 MG EXTENDED RELEASE TAB PO SCH (08:21)
--- NOTE | 2017-04-01 13:48 | HHI.DS ---
Discharge Summary Admission Date Jan 15, 2017 at 12:53 Discharge Date: Jan 18, 2017 Admitting Diagnosis LEFT hip fracture revision to bipolar hip arthroplasty Diagnosis: (1) Subcapital fracture of neck of left femur Diagnosis: Principal Procedures Left hip Hemiarthroplasty Brief History This is a 81 year old female patient PE at Discharge The patient's dressing is C/D/I. EHL/TA/G intact. 2+ pedal pulse. Calf is soft and nontender. + SILT. Minimal swelling. Hospital Course Patient was taken to the operating room for the above-mentioned procedure which she tolerated well. She was extubated and transferred to recovery room in stable condition. The rest of her hospital stay was uneventful. Her pain meds was converted from IV to by mouth medicine. She had full return of bowel and bladder function. Patient was seen by physical therapy and was discharged with detailed physical therapy precautions and instructions. Patient was seen and examined the day of discharge and found to be stable condition. Pt Condition on Discharge: Good Discharge Disposition: Discharge to SNF Discharge Instructions Diet Instructions: As Tolerated, No Restrictions Activities You Can Perform: Weight Bearing as Shree Vicente Sellers Jr., MD Apr 01, 2017 13:48
== END 2017-01-19 11:30 | DRG 470 ==
LOC: HSDI 12:53 → EDSTATUS 16:00 → N06B 19:36
PROVIDERS: ADMIT Orthopaedic Surgery; ATTEND Orthopaedic Surgery
PROC: 0QP704Z Removal of Internal Fixation Device from Left Upper Femur, Open Approach (ICD-10-PCS; 2017-01-16)
PROC: 0SRS0JZ Replacement of Left Hip Joint, Femoral Surface with Synthetic Substitute, Open Approach (ICD-10-PCS; principal; 2017-01-16 06:30)
DX: M87.852 Other osteonecrosis, left femur (principal); J81.1 Chronic pulmonary edema; N18.4 Chronic kidney disease, stage 4 (severe); I12.9 Hypertensive chronic kidney disease with stage 1 through stage 4 chronic kidney disease, or unspecified chronic kidney disease; D72.829 Elevated white blood cell count, unspecified; E78.5 Hyperlipidemia, unspecified; E03.9 Hypothyroidism, unspecified; K21.9 Gastro-esophageal reflux disease without esophagitis; F32.9 Major depressive disorder, single episode, unspecified; Z85.528 Personal history of other malignant neoplasm of kidney; Z90.5 Acquired absence of kidney; Z90.49 Acquired absence of other specified parts of digestive tract; Z96.653 Presence of artificial knee joint, bilateral
CPT/HCPCS: 20610; 71010; 73502; 77012; 80048; 83880; 85025; 85610; 86850; 86900; 86901; 86920; 87015; 87070; 87102; 87116; 87176; 87205; 87206; 94150; 99151; 99152; 99153; C1776; J0360; J0690; J1580; J1650; J1885; J2250; J2405; J2710; J3010; J3370; J7030; J7050; L1830

== ENCOUNTER 2017-03-03 12:08 | Inpatient (IN) | payer MEDICARE, BC ==
[~2017-03-03] VITALS: Ht 171.4 cm; Wt 74.8 kg
[~2017-03-03 12:08] MED LIST changes: +ENOX40P SQ; +LACTATED RINGER'S 1000 ML INJ 2,000 ML IV ONE; -MISC-163; +NEOSTIGMINE 3 MG/3 ML SYR IV ONE; +ONDANSETRON HCL 4 MG/2 ML VIAL IV PUSH ONE; +PERC5TAB12 PO; +PROPOFOL 200 MG/20 ML AMP IV ONE; -WALKER ROLLING; +ZOFR8TAB PO
[2017-03-03] MEDS ORDERED: LACTATED RINGER'S 1000 ML IV PRN (12:45)
[2017-03-03] MEDS ORDERED: CHLORHEXIDINE GLUCONATE 2 % 1 PACK (2 CLOTHS) TOPICAL PRN (12:45)
[2017-03-03] MEDS ORDERED: METOPROLOL TARTRATE 25 MG TAB PO PRN (12:45)
[2017-03-03] MEDS ORDERED: INSULIN HUMAN REGULAR 1,000 UNITS/10 ML VIAL SQ PRN (12:45)
[2017-03-03] MEDS ORDERED: POVIDONE IODINE 5% (ANTISEPSIS KIT) 4 APPLICATIONS EACH NARE PRN (12:45)
[2017-03-03] MEDS ORDERED: SODIUM CHLORID 0.9% 500 ML IV PRN (12:45)
[2017-03-03] MEDS ORDERED: ceFAZolin 2 GM PREMIX 50 ML IV SCH (13:00)
[2017-03-03] MEDS ORDERED: VANCOMYCIN 1000 MG/NS 250 ML (for <70 kg) IV SCH ×2 (13:00)
--- NOTE | 2017-03-03 13:15 | RADRPT ---
EXAM DATE/TIME: 03/03/2017 12:49 [facility] COMPARISON: CHEST SINGLE AP, January 16, 2017, 9:14. INDICATIONS : Evaluate for pneumonia, pneumothorax, and communicable disease. Pre-op for revision left total hip a rthroplasty. MEDICAL HISTORY : Hypertension. SURGICAL HISTORY : Appendectomy. Total knee replacement, left. Total knee replacement, right. Left total hip arthroplast y. Left nephrectomy. Left AV fistula. ENCOUNTER: Initial ACUITY: 1 day PAIN SCORE: 4/10 LOCATION: chest FINDINGS: A single view of the chest demonstrates the lungs to be symmetrically aerated without evidence of mas s, infiltrate or effusion. The cardiomediastinal contours are unremarkable. Osseous structures are intact. CONCLUSION: No acute disease. Mina Trimble MD on March 03, 2017 at 13:11 Board Certified Radiologist. This report was verified electronically.
[2017-03-03 13:25] VITALS: BP 156/55; PULSE 55; RESP 18; TEMP 97.7; O2SAT 95
[2017-03-03] MEDS ORDERED: GENTAMICIN SULFATE 80 MG/2 ML VIAL ONE (13:28)
[2017-03-03 13:51] LABS: AUTOMATED NEUTROPHIL # 8.9 TH/MM3 (1.8-7.7); BASOPHIL # 0.1 TH/MM3 (0-0.2); EOSINOPHIL # 0.5 TH/MM3 (0-0.4); EOSINOPHIL % 3.6 % (0.0-4.0); HEMATOCRIT 39.3 % (35.0-46.0); HEMO FLAGS DIFF FINAL; LYMPH % 16.2 % (9.0-44.0); LYMPHOCYTE # 2.1 TH/MM3 (1.0-4.8); MEAN CORPUSCULAR HEMOGLOBIN 29.6 PG (27.0-34.0); MEAN CORPUSCULAR HGB CONC 30.9 % (32.0-36.0); MONO % 10.5 % (0.0-8.0); NEUT % 68.7 % (16.0-70.0); PLATELET COUNT 357 TH/MM3 (150-450); RED CELL DISTRIBUTION WIDTH 15.4 % (11.6-17.2); WHITE BLOOD COUNT 12.9 TH/MM3 (4.0-11.0)
[2017-03-03 13:57] LABS: PROTHROMBIN TIME - PATIENT 10.5 SEC (9.8-11.6)
[2017-03-03 14:03] LABS: ANION GAP 9 MEQ/L (5-15); AST (GOT) 14 U/L (15-37); BICARBONATE 28.7 MEQ/L (21.0-32.0); BLOOD UREA NITROGEN 27 MG/DL (7-18); CHLORIDE 102 MEQ/L (98-107); GLOMERULAR FILTRATION RATE 26 ML/MIN (>89); POTASSIUM 4.1 MEQ/L (3.5-5.1); SODIUM (NA) 140 MEQ/L (136-145)
[2017-03-03 14:07] LABS: ALKALINE PHOSPHATASE 151 U/L (45-117); ALT (GPT) 11 U/L (10-53); TOTAL BILIRUBIN ADULT 0.5 MG/DL (0.2-1.0)
[2017-03-03] MEDS ORDERED: ACETAMINOPHEN 1000 MG/100 ML VIAL IV ONE (15:44)
[2017-03-03] MEDS ORDERED: DEXAMETHASONE SOD PHOS 4 MG/ML VIAL ONE (15:44)
--- NOTE | 2017-03-03 18:48 | PD.OP ---
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 Resident Surgeon: None Operation and Findings: IMPLANTS: Depuy Acetabula shell 52mm Cancellous screws (2) 6.5mm x 30 and 40 mm [place] acetabular liner +4, 10 deg Femoral head 36mm +8.5 12/14 taper INDICATION FOR SURGERY: An 81 year-old female with a prior history of left femoral neck fracture fixed with perc screws in july 2016. She subsequently developed fixation failure and AVN and underwent conversion to a bipolar hemiarthroplasty about 2 months ago. She then experienced dislocation of the bipolar with persistent instability despite closed reduction in the office. She now presents for bipolar revision versus conversion to total hip athroplasty. The risks include the increased risk of the co-morbid conditions of obesity, diabetes, hypertension, heart disease, and the possible complications of this surgery and anesthesia, need for other procedures, bleeding, infection, dislocation, fracture, DVT and PE, nerve and vascular injury and very rarely but possibly have been explained to the patient. The patient accepts these risks for the benefits of joint replacement over the failure of non- operative care to provide adequate pain relief and improve their functional disability. PROCEDURE DETAILS: The patient was taken to operating room. General anesthesia was induced without incident. The patient was placed in the lateral decubitus position, the LEFT hip facing up. The LEFT hip was prepped and draped in a sterile fashion. Prophylactic antibiotics was administered. Posterolateral approach was made. A mobile window was created. Subcutaneous fat dissected and the fascia tasha was split. The fibers of gluteus maximums were splint. Charnley retractor was inserted. There was a large amount of seroma and clear fluid synovial expressed from the hip joint. The fluid was cultured. The short external rotators were then taken down as well as superior edge of the gluteus devonte. This was tagged for later repair with #0 PDS suture. Using a rongeur and Bovie electrocautery, a circumferential soft tissue release was performed to allow appropriate mobilization and complete dislocation of the bipolar prosthesis. Using a bone tamp the bipolar head was removed without complication. The femoral stem was checked and found to be stable. This was about 40 of anteversion. Examination of the acetabulum revealed anterior wall deficiency at 10-11 oclock position. Further anterior release was performed. Gutierrez retractor was inserted anterosuperior. The inferior release was performed. The acetabular retractor was inserted. The labrum was debrided. The medial wall was identified and the acetabulum was now carefully sequentially reamed to 51 mm. A trial cup was inserted in flexion of 45 deg and anteversion of 20 deg with excellent press -fit. The actual implant was then placed in the same flexion and anteversion. Excellent press-fit was achieved. The rim coverage was checked with circumferential osteophytes debrided as necessary around the rim. The cup was further secured with 2 posterior superior screws. A lipped liner was inserted with the lip placed anteriorly to compensate for the stem anteversion and anterior wall defect. The anterior inferior rim was checked for good coverage and the iliopsoas tendon did not appear to be involved. A 36 mm head was inserted. The hip was reduced. Stability on the table was excellent. No abnormalities were seen. The wounds were copiously irrigated and the gluteus maxiums was reparied with # 0 PDS sutures. Transosseous fiberwises were placed to the posterior capsule and short external rotators. The fascia tasha was closed with running # 1 PDS stitch. The subcutaneous tissue was closed with 2-0 PDS and the skin was closed with lidia. Sterile dressing were applied. The patient tolerated the procedure well with no complications. She was placed in the knee immobilizer as well as an abduction pillow. She will remain in posterior precautions for about 8 weeks. Weightbearing as tolerated. Vicente Sellers Jr., MD March 03, 2017 18:48
[2017-03-03] MEDS ORDERED: Post-op Orders (for Pharmacy) MISC XX ONE (19:00)
[2017-03-03] MEDS: KETOROLAC TROMETHAMINE 30 MG/ML (IVP) VIAL IVP SCH (19:00)
[2017-03-03] MEDS ORDERED: oxyCODONE/ACETAMINOPHEN 5 MG/325 MG TAB PO PRN (19:00)
[2017-03-03] MEDS ORDERED: PROMETHAZINE HCL 25 MG TAB PO PRN (19:00)
[2017-03-03] MEDS ORDERED: SODIUM CHLORIDE 0.9% FLUSH 10 ML FLUSH IV FLUSH PRN (19:00)
[2017-03-03] MEDS ORDERED: MORPHINE SULFATE 8 MG/ML INJ IV PUSH PRN (19:00)
[2017-03-03] MEDS ORDERED: fentaNYL CITRATE 250 MCG/5 ML AMP ONE (19:02)
[2017-03-03] MEDS ORDERED: KETOROLAC TROMETHAMINE 30 MG/ML (IVP) VIAL ONE (19:09)
[2017-03-03] MEDS ORDERED: *ENALAPRILAT 1.25 MG/ML VIAL PERIprocedural Use ONLY ONE (19:33)
[2017-03-03] MEDS ORDERED: *LABETALOL HCL 100 MG/20 ML VIAL PERIprocedural Use ONLY ONE (20:04)
--- NOTE | 2017-03-03 20:05 | RADRPT ---
EXAM DATE/TIME: 03/03/2017 19:12 [facility] COMPARISON: No previous studies available for comparison. INDICATIONS : Post OP left hip. MEDICAL HISTORY : None. SURGICAL HISTORY : None. ENCOUNTER: Initial ACUITY: 1 day PAIN SCORE: 0/10 LOCATION: Left hip FINDINGS: Postoperative left total hip replacement. Skin lidia present laterally. Normal alignment. There is some air in the soft tissues. CONCLUSION: 1. Postoperative left hip replacement. No complications identified. Goran Brown MD on March 03, 2017 at 20:01 Board Certified Radiologist. This report was verified electronically.
[2017-03-03] MEDS ORDERED: LABETALOL HCL 100 MG/20 ML VIAL IV ONE (20:30)
[2017-03-03] MEDS ORDERED: METOPROLOL SUCCINATE 25 MG EXTENDED RELEASE TAB PO SCH (20:45)
[2017-03-03] MEDS: SODIUM CHLORIDE 0.9% FLUSH 10 ML FLUSH IV FLUSH SCH (21:00)
[2017-03-03 21:04] VITALS: BP 108/53; PULSE 60; RESP 18; TEMP 96; O2SAT 96
[2017-03-03] MEDS: ATORVASTATIN 40 MG TAB PO SCH (21:53)
[2017-03-04] VITALS (9 sets, daily range): BP systolic 93–134; BP diastolic 36–60; PULSE 56–93; RESP 17–20; TEMP 96–98.3; O2SAT 90–98
[2017-03-04] MEDS: KETOROLAC TROMETHAMINE 30 MG/ML (IVP) VIAL IVP SCH ×4 (02:43→19:52)
[2017-03-04] MEDS: VANCOMYCIN INJ 1,000 MG in SODIUM CHLOR 0.9% 250 ML INJ 250 ML IV SCH ×2 (02:43→15:41)
[2017-03-04] MEDS: LEVOTHYROXINE SODIUM 50 MCG TAB PO SCH (05:45)
--- NOTE | 2017-03-04 08:10 | PD.CONS ---
[facility] Reason for Consult Medical management with history of hypertension chronic kidney insufficiency Primary Care Physician Suzi Lee MD Diagnoses: History of Present Illness Patient is a very pleasant 81-year-old female with history of hypertension, renal cell carcinoma status post left nephrectomy, chronic kidney insufficiency who is admitted yesterday under orthopedic services and underwent left hip revision bipolar hemiarthroplasty. Patient states that she had has been having pain "miserable" unable to bear weight since 6 months ago. Last December she had left hip removal of hardware. Patient gets around with a walker. Having increasing left hip/buttock pain temporarily relieved by oxycodone. She denies any urinary or bowel incontinence. No constipation.. Persistence prompted reevaluation and admitted for this procedure. 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 She also has history of renal cell carcinoma years ago status post nephrectomy and at one point possible hemodialysis was contemplated and AV fistula was placed on her left arm however this was never used. Review of Systems Constitutional: DENIES: Diaphoretic episodes, Fatigue, Fever, Weight gain, Weight loss, Chills, Dizziness, Change in appetite, Night Sweats Endocrine: DENIES: Abnorml menstrual pattern, Heat/cold intolerance, Polydipsia , Polyuria, Polyphagia Eyes: DENIES: Blurred vision, Diplopia, Eye inflammation, Eye pain, Vision loss , Photosensitivity, Double Vision Ears, nose, mouth, throat: DENIES: Tinnitus, Hearing loss, Vertigo, Nasal discharge, Oral lesions, Throat pain, Hoarseness, Ear Pain, Running Nose, Epistaxis, Sinus Pain, Toothache, Odynophagia Respiratory: DENIES: Apneas, Cough, Snoring, Wheezing, Hemoptysis, Sputum production, Shortness of breath Cardiovascular: COMPLAINS OF: Lower Extremity Edema (occasional leg swelling bilateral), DENIES: Chest pain, Palpitations, Syncope, Dyspnea on Exertion, PND , Orthopnea, Claudication Gastrointestinal: DENIES: Abdominal pain, Black stools, Bloody stools, Constipation, Diarrhea, Nausea, Vomiting, Difficulty Swallowing, Anorexia Genitourinary: DENIES: Abnormal vaginal bleeding, Dysmenorrhea, Dyspareunia, Sexual dysfunction, Urinary frequency, Urinary incontinence, Urgency, Hematuria , Dysuria, Nocturia, Vaginal discharge Musculoskeletal: COMPLAINS OF: Joint pain Integumentary: DENIES: Abnormal pigmentation, Pruritus, Rash, Nail changes, Breast masses, Breast skin changes, Nipple discharge Hematologic/lymphatic: DENIES: Bruising, Lymphadenopathy Immunologic/allergic: DENIES: Eczema, Urticaria Psychiatric: DENIES: Suicidal Ideation, Homicidal Ideation Past Family Social History Allergies: Coded Allergies: No Known Allergies (Unverified , 01/15/17) Past Medical History Hypertension Hyperlipidemia History of CHF History of hypothyroidism History of renal cell carcinoma status post left nephrectomy History of chronic kidney insufficiency stage III Past Surgical History January 16 left hip removal of hardware, left bipolar hemiarthroplasty 10 years ago left kidney removal Bilateral knee replacement History of right colectomy History of hernia repair Reported Medications As outpatient was on allopurinol Amlodipine 10 mg daily 8 atorvastatin 40 mg daily Calcitriol Furosemide 20 mg daily Synthroid 50 g daily Toprol-XL 25 mg daily Currently in-house in addition to above patient is on Lovenox 30 mg subcutaneous every 12 Percocet when necessary for pain Active Ordered Medications See EMR Family History Noncontributory Social History Nonsmoker nonalcohol drinker Physical Exam Vital Signs Vital Signs Date Time Temp Pulse Resp B/P Pulse Ox O2 Delivery O2 Flow Rate FiO2 03/04/17 04:00 96.0 58 20 101/49 96 03/04/17 00:00 96.0 56 20 134/60 96 03/03/17 21:04 96.0 60 18 108/53 96 03/03/17 20:30 57 18 107/51 99 Nasal Cannula 4 03/03/17 20:23 Nasal Cannula 4.00 03/03/17 20:15 57 18 113/53 94 Nasal Cannula 4 03/03/17 20:00 58 18 163/68 97 Nasal Cannula 4 03/03/17 19:45 60 20 169/73 96 Nasal Cannula 4 03/03/17 19:30 62 20 186/79 95 Nasal Cannula 4 03/03/17 19:15 66 20 187/77 94 Nasal Cannula 4 03/03/17 18:55 98.1 74 20 194/77 90 Nasal Cannula 4 03/03/17 13:25 97.7 55 18 156/55 95 Physical Exam GENERAL: Awake alert, in no apparent distress. SKIN: No rashes, ecchymoses or lesions. Cool and dry. HEAD: Atraumatic. Normocephalic. EYES: Pupils equal round and reactive. Extraocular motions intact. No scleral icterus. ENT: Nose without bleeding, Throat without erythema, tonsillar hypertrophy or exudate.Airway patent. NECK: Trachea midline. Supple, nontender, no meningeal signs. CARDIOVASCULAR: Regular rate and rhythm without murmurs, gallops, or rubs. RESPIRATORY: Clear to auscultation. Breath sounds equal bilaterally. No wheezes , rales, or rhonchi. GASTROINTESTINAL: Abdomen soft, non-tender, nondistended. Good bowel sounds. Positive abdominal wall hernia No guarding. Haynes catheter in place MUSCULOSKELETAL: Extremities without clubbing, cyanosis, or edema. No joint tenderness, effusion, or edema noted. No calf tenderness. Negative Homans sign bilaterally. LUE+ AV fistula+bruit Left hip with post op dressing in place. Good peripheral pulses. Left leg brace in place.moves all toes freely, no gross senosry deficits NEUROLOGICAL: Awake and alert. Cranial nerves II through XII intact. Motor and sensory grossly within normal limits. Five out of 5 muscle strength in all muscle groups. Normal speech. Laboratory Laboratory Tests Test 03/03/17 13:30 White Blood Count 12.9 Red Blood Count 4.10 Hemoglobin 12.1 Hematocrit 39.3 Mean Corpuscular Volume 96.0 Mean Corpuscular Hemoglobin 29.6 Mean Corpuscular Hemoglobin 30.9 Concent Red Cell Distribution Width 15.4 Platelet Count 357 Mean Platelet Volume 7.7 Neutrophils (%) (Auto) 68.7 Lymphocytes (%) (Auto) 16.2 Monocytes (%) (Auto) 10.5 Eosinophils (%) (Auto) 3.6 Basophils (%) (Auto) 1.0 Neutrophils # (Auto) 8.9 Lymphocytes # (Auto) 2.1 Monocytes # (Auto) 1.4 Eosinophils # (Auto) 0.5 Basophils # (Auto) 0.1 CBC Comment DIFF FINAL Differential Comment Prothrombin Time 10.5 Prothromb Time International 1.0 Ratio Sodium Level 140 Potassium Level 4.1 Chloride Level 102 Carbon Dioxide Level 28.7 Anion Gap 9 Blood Urea Nitrogen 27 Creatinine 1.89 Estimat Glomerular Filtration 26 Rate Random Glucose 89 Calcium Level 10.6 Total Bilirubin 0.5 Aspartate Amino Transf 14 (AST/SGOT) Alanine Aminotransferase 11 (ALT/SGPT) Alkaline Phosphatase 151 Total Protein 7.6 Albumin 3.1 Blood Type A POSITIVE Antibody Screen NEGATIVE Date/Time Procedure Status Source Growth 03/03/17 19:58 Acid Fast Stain Received Wound Hip Pending 03/03/17 19:58 Mycobacterial Culture Received Wound Hip Pending 03/03/17 16:39 Gram Stain Received Wound Hip Pending 03/03/17 16:39 Wound Culture Received Wound Hip Pending 03/03/17 16:39 Fungal Smear Received Wound Hip Pending 03/03/17 16:39 Fungal Culture Received Wound Hip Pending Result Diagram: 03/03/17 1330 03/03/17 1330 Imaging Last Impressions Hip and Pelvis X-Ray 03/03/17 0000 Signed Impressions: Service Date/Time: Friday, March 03, 2017 19:12 - CONCLUSION: 1. Postoperative left hip replacement. No complications identified. Goran Brown MD Chest X-Ray 03/03/17 0000 Signed Impressions: Service Date/Time: Friday, March 03, 2017 12:49 - CONCLUSION: No acute disease. Mina Trimble MD Assessment and Plan Assessment and Plan 81-year-old female Status post left hip revision bipolar arthroplasty 03/03 Orthopedic service following Pt following-patient very motivated When necessary pain meds per orthopedic service History of hypertension, RCC S/P left nephrectomy, chronic kidney insufficiency stage III status post AV fistula left arm never been used CHF in remission, hypothyroidism, gout-stable Continue on home meds.- DVT prophylaxis with Lovenox.-I will change to Lovenox dose to once daily with CKI Thank you for this consult- we will ff patient in house with you Case management consulted for discharge planning. Thank you for this consult we'll follow patient in-house Discussed Condition With Patient Kelsie Fraire MD March 04, 2017 08:10
[2017-03-04] MEDS: CALCITRIOL 0.25 MCG CAP PO SCH (10:13)
[2017-03-04] MEDS: SODIUM CHLORIDE 0.9% FLUSH 10 ML FLUSH IV FLUSH SCH ×2 (10:14→19:52)
[2017-03-04] MEDS: FUROSEMIDE 20 MG TAB PO SCH (10:14)
[2017-03-04] MEDS: METOPROLOL SUCCINATE 25 MG EXTENDED RELEASE TAB PO SCH (10:14)
[2017-03-04] MEDS ORDERED: ENOXAPARIN SODIUM 30 MG/0.3 ML SYRINGE SQ SCH (18:00)
[2017-03-04] MEDS: ENOXAPARIN SODIUM 30 MG/0.3 ML SYRINGE SQ SCH (18:33)
--- NOTE | 2017-03-04 19:49 | PD.ORT.PN ---
Subjective Subjective Remarks no issues. pain controlled Objective Vitals Vital Signs Date Time Temp Pulse Resp B/P Pulse Ox O2 Delivery O2 Flow Rate FiO2 03/04/17 16:00 97.4 62 18 101/53 94 03/04/17 12:00 96.5 58 18 111/52 98 03/04/17 08:52 96 Nasal Cannula 3.00 03/04/17 08:00 97.4 63 18 105/50 94 03/04/17 04:00 96.0 58 20 101/49 96 03/04/17 00:00 96.0 56 20 134/60 96 03/03/17 21:04 96.0 60 18 108/53 96 03/03/17 20:30 57 18 107/51 99 Nasal Cannula 4 03/03/17 20:23 Nasal Cannula 4.00 03/03/17 20:15 57 18 113/53 94 Nasal Cannula 4 03/03/17 20:00 58 18 163/68 97 Nasal Cannula 4 I/O 03/03/17 03/03/17 03/03/17 03/04/17 03/04/17 03/04/17 07:00 15:00 23:00 07:00 15:00 23:00 Intake Total 1850 ml 1155 ml 360 ml Output Total 700 ml 150 ml 150 ml Balance 1150 ml 1005 ml 210 ml Intake Oral 240 ml 360 ml IV Total 50 ml 915 ml Other 1800 ml Output Urine Total 300 ml 150 ml 150 ml Estimated Blood Loss 400 ml # Bowel Movements 0 0 Result Diagram: 03/03/17 1330 03/03/17 1330 Objective Remarks LLE: CKS off at this time. nvi. wound CDI. SILT distally. neg homans Assessment & Plan Assessment and Plan POD1- s/p left ELIZA conversion doing well lovenox- xarelto at dc dressing- change qday pod 2 50% WB. post hip precaution. CKS on at all times, except when walking. abd pillow in bed. patient requesting dc home with Vicente Rosas Jr., MD March 04, 2017 19:49
[2017-03-04] MEDS: DOCUSATE SODIUM 100 MG CAP PO SCH (19:51)
[2017-03-04] MEDS: ATORVASTATIN 40 MG TAB PO SCH (19:51)
--- NOTE | 2017-03-04 19:51 | HHI.FF ---
Face to Face Verification Diagnosis: (1) Subcapital fracture of neck of left femur Physical Therapy Gait training Hip: Total hip Knee: Protocol: Left Canvas Knee Splint: At all times Left LE Weight Bearing: Partial WB 50% Left LE Range of Motion: No ROM Nursing RN: 3 days/week x 2 weeks Nursing: Dressing changes Dressing Changes: 4x4s, Xeroform, Coverderm/Primapore I have seen patient Tuyet Wells on 03/04/17. My clinical findings support the need for the requested home health care services because: Ltd mobility - disease progression Limited ability to care for self High risk of falls I certify that my clinical findings support that this patient is homebound because: Post-op weakness Vicente Sellers Jr., MD March 04, 2017 19:51
[2017-03-04] MEDS ORDERED: MAGNESIUM HYDROXIDE SUSP 30 ML CUP PO PRN (23:45)
[2017-03-05] MEDS: KETOROLAC TROMETHAMINE 30 MG/ML (IVP) VIAL IVP SCH ×3 (02:28→15:34)
[2017-03-05 04:30] VITALS: BP 123/49; PULSE 69; RESP 17; TEMP 97.7; O2SAT 93
[2017-03-05] MEDS: LEVOTHYROXINE SODIUM 50 MCG TAB PO SCH (06:07)
[2017-03-05] MEDS ORDERED: PERC5TAB12 PO (07:45)
[2017-03-05] MEDS ORDERED: XARE10TA PO (07:45)
[2017-03-05 08:00] VITALS: BP 118/51; PULSE 62; RESP 18; TEMP 97.3; O2SAT 97
[2017-03-05] MEDS: FUROSEMIDE 20 MG TAB PO SCH (10:21)
[2017-03-05] MEDS: METOPROLOL SUCCINATE 25 MG EXTENDED RELEASE TAB PO SCH (10:22)
[2017-03-05] MEDS: SODIUM CHLORIDE 0.9% FLUSH 10 ML FLUSH IV FLUSH SCH ×2 (10:22→19:19)
[2017-03-05] MEDS: DOCUSATE SODIUM 100 MG CAP PO SCH ×2 (10:22→19:19)
[2017-03-05] MEDS: CALCITRIOL 0.25 MCG CAP PO SCH (10:22)
[2017-03-05 10:39] VITALS: O2SAT 98
--- NOTE | 2017-03-05 10:52 | HHI.PR ---
Subjective Remarks pain controlled requesting for a regular diet - apprarently was placed on a mechanical soft Objective Vitals Vital Signs Date Time Temp Pulse Resp B/P Pulse Ox O2 Delivery O2 Flow Rate FiO2 03/05/17 10:39 98 21 03/05/17 04:30 97.7 69 17 123/49 93 03/04/17 23:35 97.8 65 17 95/37 98 03/04/17 21:38 90 21 03/04/17 19:35 98.3 93 17 93/36 92 03/04/17 16:00 97.4 62 18 101/53 94 03/04/17 12:00 96.5 58 18 111/52 98 I/O 03/04/17 03/04/17 03/04/17 03/05/17 03/05/17 03/05/17 07:00 15:00 23:00 07:00 15:00 23:00 Intake Total 1155 ml 600 ml 240 ml Output Total 150 ml 300 ml 300 ml Balance 1005 ml 300 ml -60 ml Intake Oral 240 ml 600 ml 240 ml IV Total 915 ml Output Urine Total 150 ml 300 ml 300 ml # Bowel Movements 0 0 0 Result Diagram: 03/03/17 1330 03/03/17 1330 Imaging Last Impressions Hip and Pelvis X-Ray 03/03/17 0000 Signed Impressions: Service Date/Time: Friday, March 03, 2017 19:12 - CONCLUSION: 1. Postoperative left hip replacement. No complications identified. Goran Brown MD Chest X-Ray 03/03/17 0000 Signed Impressions: Service Date/Time: Friday, March 03, 2017 12:49 - CONCLUSION: No acute disease. Mina Trimble MD Objective Remarks awake and alert, NAD anicteric lungs clear regular rhythm abodmen soft, nontender extremities- no calf tenderness, post op dressing in place Procedures 03/04- revision left ELIZA Urinary Catheter: Yes Haynes insert reason: Surgical/Invasive Proced Date of Insertion: March 03, 2017 A/P Assessment and Plan 81-year-old female Status post left hip revision bipolar arthroplasty 03/03 Orthopedic service following Pt following-patient very motivated When necessary pain meds per orthopedic service History of hypertension, RCC S/P left nephrectomy, chronic kidney insufficiency stage III status post AV fistula left arm never been used CHF in remission, hypothyroidism gout-stable Continue on home meds.- DVT prophylaxis with Lovenox.- once daily with CKI Kelsie Fraire MD March 05, 2017 10:52
[2017-03-05 12:00] VITALS: BP 108/41; PULSE 58; RESP 18; TEMP 96.3; O2SAT 96
[2017-03-05 16:00] VITALS: BP 136/42; PULSE 65; RESP 18; TEMP 98.4; O2SAT 96
[2017-03-05] MEDS: ENOXAPARIN SODIUM 30 MG/0.3 ML SYRINGE SQ SCH (18:05)
[2017-03-05] MEDS: ATORVASTATIN 40 MG TAB PO SCH (19:19)
[2017-03-05 20:00] VITALS: BP 112/50; PULSE 59; RESP 17; TEMP 97.6; O2SAT 94
[2017-03-05] MEDS: ZOLPIDEM TARTRATE 5 MG TAB PO PRN (22:31)
[2017-03-05] MEDS: oxyCODONE/ACETAMINOPHEN 5 MG/325 MG TAB PO PRN (22:37)
[2017-03-06] VITALS: BP 103/35; PULSE 59; RESP 16; TEMP 98.8; O2SAT 96
[2017-03-06 04:30] VITALS: BP 99/38; PULSE 58; RESP 16; TEMP 98.2; O2SAT 95
[2017-03-06] MEDS: LEVOTHYROXINE SODIUM 50 MCG TAB PO SCH (05:33)
[2017-03-06 08:00] VITALS: BP 111/41; PULSE 59; RESP 16; TEMP 97; O2SAT 96
[2017-03-06] MEDS: SODIUM CHLORIDE 0.9% FLUSH 10 ML FLUSH IV FLUSH SCH ×2 (09:27→20:50)
[2017-03-06] MEDS: DOCUSATE SODIUM 100 MG CAP PO SCH ×2 (09:27→20:50)
[2017-03-06] MEDS: FUROSEMIDE 20 MG TAB PO SCH (09:27)
[2017-03-06] MEDS: CALCITRIOL 0.25 MCG CAP PO SCH (09:27)
[2017-03-06] MEDS: METOPROLOL SUCCINATE 25 MG EXTENDED RELEASE TAB PO SCH (09:28)
[2017-03-06 12:00] VITALS: BP 120/42; PULSE 61; RESP 16; TEMP 97; O2SAT 92
--- NOTE | 2017-03-06 12:20 | HHI.PR ---
Subjective Remarks no complains ecept for consitpation- states dulcolax works for her no nausea or vomiting + flatus Objective Vitals Vital Signs Date Time Temp Pulse Resp B/P Pulse Ox O2 Delivery O2 Flow Rate FiO2 03/06/17 08:00 97.0 59 16 111/41 96 03/06/17 04:30 98.2 58 16 99/38 95 03/06/17 00:00 98.8 59 16 103/35 96 03/05/17 20:00 97.6 59 17 112/50 94 03/05/17 16:00 98.4 65 18 136/42 96 I/O 03/05/17 03/05/17 03/05/17 03/06/17 03/06/17 03/06/17 07:00 15:00 23:00 07:00 15:00 23:00 Intake Total 240 ml 840 ml 120 ml Output Total 300 ml 500 ml Balance -60 ml -500 ml 840 ml 120 ml Intake Oral 240 ml 840 ml 120 ml Output Urine Total 300 ml 500 ml # Voids 5 0 # Bowel Movements 0 0 0 Result Diagram: 03/03/17 1330 03/03/17 1330 Imaging Last Impressions Hip and Pelvis X-Ray 03/03/17 0000 Signed Impressions: Service Date/Time: Friday, March 03, 2017 19:12 - CONCLUSION: 1. Postoperative left hip replacement. No complications identified. Goran Brown MD Chest X-Ray 03/03/17 0000 Signed Impressions: Service Date/Time: Friday, March 03, 2017 12:49 - CONCLUSION: No acute disease. Mina Trimble MD Objective Remarks awake and alert, NAD anicteric lungs clear regular rhythm abdomen soft, nontender extremities- no calf tenderness, post op dressing in place Procedures 03/04- revision left ELIZA Date of Insertion: March 03, 2017 Date of Removal: March 05, 2017 A/P Assessment and Plan 81-year-old female Status post left hip revision bipolar arthroplasty 03/03 Orthopedic service following Pt following-patient very motivated When necessary pain meds per orthopedic service History of hypertension, RCC S/P left nephrectomy, chronic kidney insufficiency stage III status post AV fistula left arm never been used CHF in remission, hypothyroidism gout-stable Continue on home meds.- consitpation- Dulocolax 10 mg supp x 1 DVT prophylaxis with Lovenox.- once daily with [facility] Kelsie Fraire MD March 06, 2017 12:20
[2017-03-06] MEDS ORDERED: BISACODYL 10 MG SUPP RECTAL ONE (12:30)
[2017-03-06 16:00] VITALS: BP 102/38; PULSE 62; RESP 16; TEMP 98.6; O2SAT 93
[2017-03-06] MEDS: ENOXAPARIN SODIUM 30 MG/0.3 ML SYRINGE SQ SCH (18:00)
[2017-03-06 20:00] VITALS: BP 129/49; PULSE 65; RESP 20; TEMP 98.7; O2SAT 94
[2017-03-06] MEDS: ATORVASTATIN 40 MG TAB PO SCH (20:50)
[2017-03-06] MEDS: ZOLPIDEM TARTRATE 5 MG TAB PO PRN (22:40)
[2017-03-06] MEDS: oxyCODONE/ACETAMINOPHEN 5 MG/325 MG TAB PO PRN (22:45)
[2017-03-07] VITALS: BP 109/41; PULSE 69; RESP 22; TEMP 98.1; O2SAT 93
[2017-03-07 04:00] VITALS: BP 115/43; PULSE 61; RESP 16; TEMP 97.3; O2SAT 93
[2017-03-07] MEDS: LEVOTHYROXINE SODIUM 50 MCG TAB PO SCH (05:13)
[2017-03-07 08:00] VITALS: BP 108/48; PULSE 62; RESP 16; TEMP 96.9; O2SAT 92
--- NOTE | 2017-03-07 08:05 | PD.ORT.PN ---
Subjective Post Op Day #: 4 Subjective Remarks pain under control. wants to go home. Objective Vitals Vital Signs Date Time Temp Pulse Resp B/P Pulse Ox O2 Delivery O2 Flow Rate FiO2 03/07/17 04:00 97.3 61 16 115/43 93 03/07/17 00:00 98.1 69 22 109/41 93 03/06/17 23:45 20 03/06/17 20:00 98.7 65 20 129/49 94 03/06/17 20:00 Room Air 03/06/17 16:00 98.6 62 16 102/38 93 03/06/17 12:00 97.0 61 16 120/42 92 I/O 03/06/17 03/06/17 03/06/17 03/07/17 03/07/17 03/07/17 07:00 15:00 23:00 07:00 15:00 23:00 Intake Total 120 ml 1380 ml 240 ml Balance 120 ml 1380 ml 240 ml Intake Oral 120 ml 1380 ml 240 ml IV Total 0 ml # Voids 0 9 1 # Bowel Movements 0 5 0 Result Diagram: 03/03/17 1330 03/03/17 1330 Objective Remarks LLE: in chair, nad. CKS off at this time. nvi. wound CDI. SILT distally. neg homans Assessment & Plan Ortho Post Op Day #: 4 Problem List: Assessment and Plan POD4- s/p left ELIZA conversion doing well lovenox- xarelto at dc dressing- change qday pod 2 50% WB. post hip precaution. CKS on at all times, except when walking. abd pillow in bed. patient requesting dc home with HH - cleared for d/c f/up dr. talbot 2 weeks Hussain Najera March 07, 2017 08:05
[2017-03-07] MEDS: DOCUSATE SODIUM 100 MG CAP PO SCH (08:24)
[2017-03-07] MEDS: FUROSEMIDE 20 MG TAB PO SCH (08:24)
[2017-03-07] MEDS: METOPROLOL SUCCINATE 25 MG EXTENDED RELEASE TAB PO SCH (08:24)
[2017-03-07] MEDS: SODIUM CHLORIDE 0.9% FLUSH 10 ML FLUSH IV FLUSH SCH (08:24)
[2017-03-07] MEDS: CALCITRIOL 0.25 MCG CAP PO SCH (08:25)
--- NOTE | 2017-03-07 08:55 | HHI.PR ---
Subjective Remarks no complains, ulises baez had a good BM last evening looking forward to going home today Objective Vitals Vital Signs Date Time Temp Pulse Resp B/P Pulse Ox O2 Delivery O2 Flow Rate FiO2 03/07/17 04:00 97.3 61 16 115/43 93 03/07/17 00:00 98.1 69 22 109/41 93 03/06/17 23:45 20 03/06/17 20:00 98.7 65 20 129/49 94 03/06/17 20:00 Room Air 03/06/17 16:00 98.6 62 16 102/38 93 03/06/17 12:00 97.0 61 16 120/42 92 I/O 03/06/17 03/06/17 03/06/17 03/07/17 03/07/17 03/07/17 07:00 15:00 23:00 07:00 15:00 23:00 Intake Total 120 ml 1380 ml 240 ml Balance 120 ml 1380 ml 240 ml Intake Oral 120 ml 1380 ml 240 ml IV Total 0 ml # Voids 0 9 1 # Bowel Movements 0 5 0 Result Diagram: 03/03/17 1330 03/03/17 1330 Imaging Last Impressions Hip and Pelvis X-Ray 03/03/17 0000 Signed Impressions: Service Date/Time: Friday, March 03, 2017 19:12 - CONCLUSION: 1. Postoperative left hip replacement. No complications identified. Goran Brown MD Chest X-Ray 03/03/17 0000 Signed Impressions: Service Date/Time: Friday, March 03, 2017 12:49 - CONCLUSION: No acute disease. Mina Trimble MD Objective Remarks awake and alert, NAD anicteric lungs clear regular rhythm abdomen soft, nontender extremities- no calf tenderness, post op dressing in place, good peripheral pulses moves all extremities spontaneously Procedures 03/04- revision left ELIZA Date of Insertion: March 03, 2017 Date of Removal: March 05, 2017 A/P Assessment and Plan 81-year-old female Status post left hip revision bipolar arthroplasty 03/03 Orthopedic service following Pt following-patient very motivated- 50% weightbearing When necessary pain meds per orthopedic service History of hypertension, RCC S/P left nephrectomy, chronic kidney insufficiency stage III status post AV fistula left arm never been used CHF in remission, hypothyroidism gout-stable Continue on home meds.- consitpation- + BM DVT prophylaxis - Xarelto on DC Advixe pt to ff up with PCP- Kelsie London MD March 07, 2017 08:55
[2017-03-07 12:00] VITALS: BP 119/76; PULSE 68; RESP 16; TEMP 97.4; O2SAT 95
--- NOTE | 2017-03-18 21:02 | HHI.DS ---
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 She underwent revision to a bipolar hemiarthroplasty which became unstable and she failed conservative treatment with recurrent dislocation. She now presents for conversion to a left total hip replacement. PE at Discharge LLE: in chair, nad. CKS off at this time. nvi. wound CDI. SILT distally. [facility] Course The patient was taken to the operating room by the undersigned for the above procedures which she tolerated well. She extubated then transferred to PACU in stable condition. The patient was subsequently transferred to the floor. The rest of his hospital stay was uneventful. she received adequate postoperative antibiotics. her diet was advanced as tolerated and she had full return of bowel function as well as making adequate urine output. We were able to covert IV pain meds to po pain meds. The patient received adequate physical therapy during her stay in is being discharged with detailed physical therapy recommendations. The patient was seen and examined on the day of discharge and found to be in stable condition. On Exam at discharge: Operative extremity was neurovascularly intact with dressing that was clean, dry and intact. Follow-up 10-[address] Sellers @ orthopaedic clinic with mina Flower. Pt Condition on Discharge: Good Discharge Disposition: Disch w/ Home Health Serv Discharge Instructions Diet Instructions: As Tolerated, No Restrictions Activities You Can Perform: Partial Weight Bearing Activities to Avoid: Driving for 24 hrs, Lifting/Bending, Shower Vicente Sellers Jr., MD March 18, 2017 21:02
== END 2017-03-07 17:04 | disposition home health service (06) | DRG 467 ==
LOC: HSDC 12:08 → EDSTATUS 15:00 → N06B 20:46
PROVIDERS: ADMIT Orthopaedic Surgery; ATTEND Orthopaedic Surgery
PROC: 0SPB09Z Removal of Liner from Left Hip Joint, Open Approach (ICD-10-PCS; 2017-03-03)
PROC: 0SUS09Z Supplement Left Hip Joint, Femoral Surface with Liner, Open Approach (ICD-10-PCS; 2017-03-03)
PROC: 0SPB0JZ Removal of Synthetic Substitute from Left Hip Joint, Open Approach (ICD-10-PCS; 2017-03-03)
PROC: 0SRB0JA Replacement of Left Hip Joint with Synthetic Substitute, Uncemented, Open Approach (ICD-10-PCS; principal; 2017-03-03 15:45)
DX: T84.021A Dislocation of internal left hip prosthesis, initial encounter (principal); I13.0 Hypertensive heart and chronic kidney disease with heart failure and stage 1 through stage 4 chronic kidney disease, or unspecified chronic kidney disease; I50.9 Heart failure, unspecified; N18.3 Chronic kidney disease, stage 3 (moderate); E03.9 Hypothyroidism, unspecified; E78.5 Hyperlipidemia, unspecified; Z85.528 Personal history of other malignant neoplasm of kidney; Z90.5 Acquired absence of kidney; Z96.653 Presence of artificial knee joint, bilateral
CPT/HCPCS: 71010; 73502; 76000; 80053; 85025; 85610; 86850; 86900; 86901; 87015; 87070; 87102; 87116; 87205; 87206; 94150; C1776; J0131; J0690; J1100; J1580; J1650; J1885; J2405; J2710; J3010; J3370; J7050; J7120; L1830